=== PATIENT | female | born 1980 | race Caucasian/White ===

== ENCOUNTER 2016-11-04 08:31 | Day surgery (SDC) | payer OTHER ==
[~2016-11-04 08:31] MED LIST: LACTATED RINGERS 1,000 ML IV SCH
[2016-11-04] MEDS ORDERED: IV START KIT ONE (08:37)
[2016-11-04] MEDS ORDERED: LACTATED RINGERS 1,000 ML ONE (08:37)
[2016-11-04] MEDS ORDERED: PROPOFOL 20 ML IV ONE (09:39)
[2016-11-04] MEDS ORDERED: FENTANYL 100 MCG/2 ML VIAL ONE (09:39)
[2016-11-04 14:15] LABS: HELICOBACTER PYLORII DETECTION NEGATIVE (NEGATIVE)
--- NOTE | 2016-11-08 10:22 | SURGPATH ---
[facility] [address] [place] [id number] Patient Name: LYLE MAYORGA MR#: [id number] : 1980 Gender: F Specimen #: [id number] Collected: 11/04/2016 Received: 11/05/2016 Reported: 11/08/2016 Submitting Phys: JESUS ROWLAND Copy To Phys: [facility] Clinical History / Pre-Operative Diagnosis: Heartburn, dysphagia, rule out gastritis and esophagitis Specimen Source / Surgical Procedure Performed: #1 antral biopsy, #2 esophagus biopsy 38 cm Interpretation: 1. GASTRIC ANTRUM, BIOPSY: - NO PATHOLOGIC ABNORMALITIES 2. ESOPHAGUS AT 38 CM, BIOPSY: - NO PATHOLOGIC ABNORMALITIES Electronically Signed Out Earl Izquierdo M.D. Gross Description: 1. The specimen is received in formalin labeled with the patient's name and "antrum". The specimen consists of two fragments of foster soft tissue each is 0.2-0.4 cm in greatest dimension. Submitted in toto in one cassette 2. The specimen is received in formalin labeled with the patient's name and "esophagus 38 cm". The specimen consists of two fragments of foster soft tissue each is 0.4 cm in greatest dimension. Submitted in toto in one cassette YOLANDA Szymanski Microscopic Description: 1. The sections show fragments of gastric mucosa exhibiting a normal architectural pattern. There are no inflammatory or neoplastic features and there are no Helicobacter-like organisms identified. 2. The sections show nonkeratinizing squamous mucosa exhibiting a normal maturational pattern. There are no inflammatory or atypical features. 1: 12401 2: 10313 R12
== END 2016-11-04 11:10 | disposition home or self-care (01) ==
LOC: SDC 08:31
PROVIDERS: ATTEND Internal Medicine Gastroenterology
PROC: 0DB58ZX Excision of Esophagus, Via Natural or Artificial Opening Endoscopic, Diagnostic (ICD-10-PCS; principal; 2016-11-04)
PROC: 0DB68ZX Excision of Stomach, Via Natural or Artificial Opening Endoscopic, Diagnostic (ICD-10-PCS; 2016-11-04)
DX: K29.70 Gastritis, unspecified, without bleeding (principal); G47.30 Sleep apnea, unspecified; Z88.2 Allergy status to sulfonamides; Z91.040 Latex allergy status
CPT/HCPCS: 87081; 43239; J3010; J7120